=== PATIENT | female | born 1985 | race Caucasian/White ===

== ENCOUNTER 2017-12-08 23:07 | Inpatient (IN) | payer OTHER ==
[2017-12-08 23:29] VITALS: BMI 29.3
[2017-12-09] MEDS: Lactated Ringer's 1,000 ML IV SCH ×2 (00:10→04:13)
[2017-12-09] MEDS ORDERED: Ondansetron HCl/PF 4 MG/2 ML Vial IVP PRN ×3 (01:35→18:08)
[2017-12-09] MEDS ORDERED: Ibuprofen 800 MG TAB PO PRN (01:35)
[2017-12-09] MEDS ORDERED: HYDROcodone/Acetaminophen 5/325 mg Tablet PO PRN ×2 (01:35)
[2017-12-09] MEDS ORDERED: Lidocaine 1% (PF) 30 ML VIAL SC PRN (01:35)
[2017-12-09] MEDS ORDERED: Lactated Ringer's 1,000 ML IV SCH (01:45)
[2017-12-09 01:51] LABS: Hemoglobin 11.3 g/dL (12.0-16.0); Mean Corpuscular HGB CONC 34.8 g/dL (32.0-36.0); Mean Corpuscular Hemoglobin 35.8 pg (27.0-31.0); Mean Platelet Volume 9.5 fL (7.4-10.4); Platelet Count 276 thou/uL (130-400); RBC Distribution Width 11.9 % (11.5-14.5); Red Blood Cell (RBC) Count 3.15 mill/uL (4.20-5.40)
[2017-12-09] MEDS ORDERED: Fentanyl 4 mcg/Marc 0.1% Cadd 100 ML in Premix Bag 1 BAG EPIDURAL SCH (02:00)
[2017-12-09] MEDS ORDERED: Naloxone HCl 0.4 mg/ml Vial IV PRN (02:00)
[2017-12-09 02:33] LABS: HBSAg Index 0.56 S/CO (0-0.99); Hep B Surf Ag Non-Reactive S/CO (NonReactive)
[2017-12-09] MEDS ORDERED: Fentanyl 100 MCG/2 ML VIAL ONE (02:42)
[2017-12-09] MEDS: Fentanyl 4mcg/Marcaine 0.1% Cassette 100 ML EPIDURAL SCH ×2 (02:50→09:35)
[2017-12-09] MEDS ORDERED: Promethazine HCl 25 MG/ML VIAL IM PRN (02:59)
[2017-12-09] MEDS ORDERED: Eucerin (Mineral Oil/Petrolatum,White) 30 gm Jar TOP PRN (02:59)
[2017-12-09] MEDS ORDERED: ePHEDrine/0.9% NaCl/PF SYRINGE 50 mg/10 ml SLOW IVP PRN (02:59)
[2017-12-09] MEDS ORDERED: Fentanyl 100 MCG/2 ML VIAL EPIDURAL PRN (02:59)
[2017-12-09] MEDS ORDERED: Naloxone HCl 0.4 mg/ml Vial IVP PRN ×2 (02:59)
[2017-12-09] MEDS ORDERED: diphenhydrAMINE 50 MG/ML VIAL IVP PRN (02:59)
[2017-12-09] MEDS ORDERED: Acetaminophen 325 MG TAB PO PRN (02:59)
[2017-12-09] MEDS ORDERED: Lactated Ringer's 500 ML IV PRN (02:59)
[2017-12-09] MEDS ORDERED: Communication Order-Pharmacy FS SCH (03:00)
[2017-12-09 04:32] LABS: Syphilis Antibody Nonreactive (Nonreactive); Syphilis Antibody Index 0.03 S/CO (<1.00 Non-Reactive)
--- NOTE | 2017-12-09 08:55 | PDOC.LDHP ---
Labor and Delivery H&P Chief complaint: contractions HPI: Pt is a 32yo G1 @ 39+ weeks who presented overnight in active labor. Current gestational age (weeks): 39 Due date: 12/13/17 Dating criteria: last menstrual period, first trimester ultrasound Grav: 1 Para: 0 Current complications: other (leila via laparatomy) Past Medical History: IBS Current medications: pre- vitamins, iron Previous surgical history: cholecystectomy (during ) Allergies/Adverse Reactions: Allergies Allergy/AdvReac Type Severity Reaction Status Date / Time No Known Allergies Allergy Unverified 09/12/17 18:41 Social history: none - Physical Exam Vital signs reviewed and normal: yes General: resting Lungs: nonlabored breathing Abdomen: gravid Extremeties: trace edema FHT: category 1 [place] contractions every: 5 - Vaginal Exam cm dilated: 8 (AROM w clear fluid on exam) Effacement: 90% Station: 0 - OB Labs Blood type: O RH: positive Antibody Screen: negative HIV: negative RPR: negative HEPSAg: negative 1 hour GCT: positive 3 hour GTT: negative GBS: negative Urine drug screen: not done Rubella: immune - Assessment L&D Assessment: term patient in labor - Plan Plan: admit to L&D, labor augmentation if indicated, informed consent obtained, anesthesia consult for pain management
[2017-12-09] MEDS ORDERED: FLU VACC QS2017-18 36 mo. & older 0.5 ML SYRINGE IM ONE (09:00)
[2017-12-09] MEDS ORDERED: LR 500 ML/Oxytocin 10 units 500 ML IV SCH (11:30)
[2017-12-09] MEDS ORDERED: Dextrose 5%-Lactated Ringers 1,000 ML IV SCH (11:30)
[2017-12-09] MEDS ORDERED: Lidocaine 2% MPF 10 ML AMP (For Epidural Use) ONE (13:36)
[2017-12-09] MEDS: LR / Pitocin 40 units/1000 ml 1,000 ML IV PRN ×2 (15:30→16:33)
--- NOTE | 2017-12-09 15:36 | PDOC.OPDEL ---
OB Operative/Delivery Note Delivery Dr/Surgeon: Kraig Pre-Delivery Diagnosis: active labor Procedure/Post Delivery Dx: spontaneous vaginal delivery Weeks gestation: 39 - Findings A Sex: female Weight: 8 lb 13 oz - 1 min: 9 - 5 min: 9 - Additional Findings/Plan Placenta delivered: spontaneous Repaired Obstetrical Laceration: 1st degree Estimated blood loss: 400ml Compilations/Other Findings: none Post delivery plan: routine recovery
[2017-12-09] MEDS ORDERED: Adacel (T-DAP) 0.5 ML VIAL IM ONE (18:08)
[2017-12-09] MEDS ORDERED: LR / Pitocin 40 units/1000 ml 1,000 ML IV SCH (18:08)
[2017-12-09] MEDS ORDERED: Preparation H Ointment 28 GM TUBE PR PRN (18:08)
[2017-12-09] MEDS ORDERED: Benzocaine/Menthol 20-0.5% 60 ML CAN TOP PRN (18:08)
[2017-12-09] MEDS ORDERED: Milk Of Magnesia 30 ML UDCUP PO PRN (18:08)
[2017-12-09] MEDS ORDERED: diphenhydrAMINE 25 MG CAP PO PRN (18:08)
[2017-12-09] MEDS ORDERED: Acetaminophen/Codeine 30-300mg Tablet PO PRN ×2 (18:08)
[2017-12-09] MEDS ORDERED: Lanolin Ointment 7 GM TUBE TOP PRN (18:08)
[2017-12-09] MEDS ORDERED: Bisacodyl 10 MG SUPP PR PRN (18:08)
[2017-12-09] MEDS: Ferrous Sulfate 325 MG TAB PO SCH (18:30)
[2017-12-09] MEDS: Ibuprofen 800 MG TAB PO SCH (23:58)
[2017-12-09] MEDS: Docusate Calcium (SURFAK) 240 MG CAP PO SCH (23:59)
[2017-12-10 06:29] LABS: Hemoglobin 8.8 g/dL (12.0-16.0); Mean Corpuscular HGB CONC 32.8 g/dL (32.0-36.0); Mean Corpuscular Hemoglobin 34.6 pg (27.0-31.0); Mean Platelet Volume 9.1 fL (7.4-10.4); Platelet Count 185 thou/uL (130-400); RBC Distribution Width 12.1 % (11.5-14.5); Red Blood Cell (RBC) Count 2.53 mill/uL (4.20-5.40); White Blood Cell (WBC) Count 15.9 thou/uL (4.8-10.8)
[2017-12-10] MEDS: Ibuprofen 800 MG TAB PO SCH ×3 (07:06→22:21)
--- NOTE | 2017-12-10 09:25 | PDOC.PP ---
Post Progress Note Post Day #: 1 Subjective: No sx of anemia, doing well, working on latch, LC pending. No fever or chills. Discussed fever 101.6 immediately after delivery but no fever since. Will continue to monitory closely. PO intake tolerated: yes Flatus: yes Ambulation: yes Vital Signs (12 hours) Temp Pulse Resp BP 12/10/17 03:50 97.9 F 78 18 101/59 L 12/09/17 23:55 97.7 F 75 18 101/55 L Weight Weight 182 lb - Physical Examination General: NAD Respiratory: non-labored breathing Abdominal: lochia (normal) Fundus firm & at: NTTP and below umb Extremities: negative homans (B) Skin: no rash Neurological: no gross focal deficits Psychiatric: A&Ox3, normal affect Result Diagrams: 12/10/17 05:03 Additional Labs: Post Labs Hep Bs Antigen Non-Reactive S/CO (NonReactive) 12/09/17 00:15 (1) Vaginal delivery Code(s): O80 - ENCOUNTER FOR FULL-TERM UNCOMPLICATED DELIVERY Status: Acute (2) Anemia Code(s): D64.9 - ANEMIA, UNSPECIFIED Status: Acute - Assessment/Plan PPD1 doing well sp . T 101 immediately after but normal since. WBC this AM same as on admission, no fundal tenderness or tachycardia. Discussed continue to monitor closely and abx if any fever noted today. LC pending.
[2017-12-10] MEDS: Docusate Calcium (SURFAK) 240 MG CAP PO SCH ×2 (09:33→22:21)
[2017-12-10] MEDS: Prenatal Vitamin 1 TAB PO SCH (09:33)
[2017-12-10] MEDS: Ferrous Sulfate 325 MG TAB PO SCH ×2 (09:33→17:18)
[2017-12-11] MEDS: Ibuprofen 800 MG TAB PO SCH (06:15)
--- NOTE | 2017-12-11 06:52 | PDOC.PP ---
Post Progress Note Post Day #: 1 Subjective: Doing well PO intake tolerated: yes Flatus: yes Ambulation: yes Vital Signs (12 hours) Temp Pulse Resp BP Pulse Ox 12/10/17 20:00 97.7 F 70 18 108/64 98 Weight Weight 182 lb - Physical Examination General: NAD Cardiovascular: no m/r/g Respiratory: clear to auscultation bilaterally Abdominal: + bowel sounds Extremities: negative homans (B) Neurological: no gross focal deficits Psychiatric: A&Ox3 Result Diagrams: 12/10/17 05:03 Additional Labs: Post Labs Hep Bs Antigen Non-Reactive S/CO (NonReactive) 12/09/17 00:15 (1) Vaginal delivery Code(s): O80 - ENCOUNTER FOR FULL-TERM UNCOMPLICATED DELIVERY Status: Acute - Assessment/Plan Doing well day 1. Primigravida. Continue obs. Prob [facility] / [facility] PPD1.
--- NOTE | 2017-12-11 06:57 | PDOC.EVN ---
Event Note - Event Note Event Note: DISCHARGE NOTE Patient of Dr Cornell, s/p ...discharged home PPD2 on 2. HX cholecystectomy this . PROCEDURE: on 12/09/2017 Admit: 12/08/2017 Discharge: 12/11/17
[2017-12-11] MEDS: Prenatal Vitamin 1 TAB PO SCH (08:41)
[2017-12-11] MEDS: Ferrous Sulfate 325 MG TAB PO SCH (08:41)
[2017-12-11] MEDS: Docusate Calcium (SURFAK) 240 MG CAP PO SCH (08:41)
[2017-12-11 08:45] VITALS: BP 106/61; TEMP 98.1
== END 2017-12-11 12:30 | disposition home or self-care (01) | DRG 774 ==
LOC: L&D/OP 23:07 → L&D 12-09 01:36 → 3SW 12-09 18:37
PROVIDERS: ADMIT Obstetrics & Gynecology; ATTEND Obstetrics & Gynecology
PROC: 10907ZC Drainage of Amniotic Fluid, Therapeutic from Products of Conception, Via Natural or Artificial Opening (ICD-10-PCS; 2017-12-09)
PROC: 10E0XZZ Delivery of Products of Conception, External Approach (ICD-10-PCS; principal; 2017-12-10)
PROC: 0HQ9XZZ Repair Perineum Skin, External Approach (ICD-10-PCS; 2017-12-10)
DX: O70.0 First degree perineal laceration during delivery (principal); O86.4 Pyrexia of unknown origin following delivery; Z37.0 Single live birth; Z3A.39 39 weeks gestation of pregnancy
CPT/HCPCS: 36415; 51702; 85027; 86780; 87340; 90715; J0595; J2001; J2405; J3010; J7120